=== PATIENT | female | born 1975 | race Caucasian/White ===

== ENCOUNTER 2017-08-13 04:58 | Emergency (ER) | payer BC, OTHER ==
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
[2017-08-13 06:43] VITALS: BP 116/80
== END 2017-08-13 06:44 | disposition home or self-care (01) ==
DX: G56.32 Lesion of radial nerve, left upper limb (principal)